=== PATIENT | female | born 1935 | race Caucasian/White ===

== ENCOUNTER → 2019-11-30 | Outpatient (CLI) | payer MEDICARE ==
[~2019-11-30] MED LIST: ATEN25TA PO; CALC1CAP7 PO; DILT360C26 PO; DULA1.5P INJ; INSU100I32 SQ; LEVO75TA5 PO; LOSA50TA14 PO; LOVA20TA2 PO; POTA20TA14 PO; RIVA20TA PO; TERA5CAP3 PO
== END | disposition home or self-care (01) ==
LOC: RAD 12:11
PROVIDERS: ATTEND Internal Medicine
DX: J43.2 Centrilobular emphysema (principal); J92.9 Pleural plaque without asbestos; J84.10 Pulmonary fibrosis, unspecified; R91.8 Other nonspecific abnormal finding of lung field; J98.4 Other disorders of lung; I25.10 Atherosclerotic heart disease of native coronary artery without angina pectoris; I77.810 Thoracic aortic ectasia; I70.0 Atherosclerosis of aorta; M85.88 Other specified disorders of bone density and structure, other site; R59.0 Localized enlarged lymph nodes
CPT/HCPCS: 71250

== ENCOUNTER 2019-12-03 09:44 | Day surgery (SDC) | payer MEDICARE ==
[2019-11-30 14:22] LABS: ALANINE AMINOTRANSFERASE 15 U/L (12-78); ALBUMIN 3.9 g/dL (3.4-5.0); ANION GAP 6 mmol/L (5-15); CALCIUM 9.5 mg/dL (8.5-10.1); CHLORIDE 106 mmol/L (98-107); CREATININE 0.95 mg/dL (0.55-1.02)
[2019-11-30 14:24] LABS: ALKALINE PHOSPHATASE 56 U/L (45-117); BILIRUBIN,TOTAL 0.7 mg/dL (0.2-1.0); TOTAL PROTEIN 7.2 g/dL (6.4-8.2)
[~2019-12-03] VITALS: Ht 161.3 cm; Wt 71.4 kg
[2019-12-03] MEDS ORDERED: PROPOFOL 10 MG/ML, 20ML ONE (10:16)
[2019-12-03] MEDS ORDERED: SUCCINYLCHOLINE 20 MG/ML, 10ML ONE (10:16)
[2019-12-03] MEDS ORDERED: NEOSTIGMINE 1 MG/ML, 10ML ONE (10:16)
[2019-12-03] MEDS ORDERED: ONDANSETRON 2MG/ML, 2ML ONE (10:16)
[2019-12-03] MEDS ORDERED: DEXAMETHASONE 4 MG/ML, 1ML ONE (10:16)
[2019-12-03] MEDS ORDERED: GLYCOPYRROLATE 0.2MG/1ML, 5ML ONE (10:16)
[2019-12-03] MEDS ORDERED: ROCURONIUM 10MG/ML,5ML ONE (10:16)
[2019-12-03] MEDS ORDERED: FENTANYL PF 100 MCG/2ML ONE (10:16)
[2019-12-03] MEDS ORDERED: CEFAZOLIN 1,000 MG ONE (10:16)
[2019-12-03] MEDS ORDERED: LACTATED RINGERS 1,000 ML IV SCH (10:19)
[2019-12-03 10:21] VITALS: BP 136/67
[2019-12-03] MEDS ORDERED: CHLORHEXIDINE 15 ML UDC MM ONE (10:30)
[2019-12-03] MEDS ORDERED: PROMETHAZINE 25 MG/ML, 1ML IVPush PRN (10:30)
[2019-12-03] MEDS ORDERED: FENTANYL PF 100 MCG/2ML IV PRN (10:30)
[2019-12-03] MEDS ORDERED: morphine SULFATE 10 MG/ML, 1ML IVPush PRN (10:30)
[2019-12-03] MEDS ORDERED: VASOPRESSIN 20 UNIT/ML, 1ML ONE (11:27)
[2019-12-03] MEDS ORDERED: LIDOCAINE-MPF 2% ,5ML ONE (11:27)
[2019-12-03] MEDS ORDERED: PHENYLEPHRINE 10 MG/ML ONE (11:27)
== END 2019-12-03 14:50 | disposition home or self-care (01) ==
LOC: OUT 09:44
PROVIDERS: ATTEND Internal Medicine
DX: R91.8 Other nonspecific abnormal finding of lung field (principal); C34.11 Malignant neoplasm of upper lobe, right bronchus or lung; Z20.828 Contact with and (suspected) exposure to other viral communicable diseases; C77.1 Secondary and unspecified malignant neoplasm of intrathoracic lymph nodes; I10 Essential (primary) hypertension; E11.9 Type 2 diabetes mellitus without complications; I48.20 Chronic atrial fibrillation, unspecified; J44.9 Chronic obstructive pulmonary disease, unspecified; E78.00 Pure hypercholesterolemia, unspecified; Z79.01 Long term (current) use of anticoagulants; Z79.4 Long term (current) use of insulin; Z79.890 Hormone replacement therapy; Z79.899 Other long term (current) drug therapy; Z85.3 Personal history of malignant neoplasm of breast; Z87.891 Personal history of nicotine dependence; Z90.49 Acquired absence of other specified parts of digestive tract; Z98.890 Other specified postprocedural states
CPT/HCPCS: 31628; 31653; 36415; 80053; 82962; 87635; 88172; 88173; 88177; 88305; 88341; 88342; 88360; 93005; J0330; J0690; J1100; J2370; J2405; J2704; J2710; J3010; J7120; 31629

== ENCOUNTER 2019-12-16 13:49 | Outpatient (CLI) | payer MEDICARE | END 2019-12-16 23:59 | disposition home or self-care (01) | LOC: RAD 13:49 | PROVIDERS: ATTEND Internal Medicine | DX: Z02.9 Encounter for administrative examinations, unspecified (principal) ==

== ENCOUNTER → 2019-12-17 | Outpatient (CLI) | payer MEDICARE ==
[~2019-12-17] MED LIST changes: +OMNIPAQUE 350 MG/ML, 75ML BOTTLE ONE
== END | disposition home or self-care (01) ==
LOC: RAD 13:35
PROVIDERS: ATTEND Internal Medicine
DX: C34.11 Malignant neoplasm of upper lobe, right bronchus or lung (principal); G31.9 Degenerative disease of nervous system, unspecified
CPT/HCPCS: 70460; Q9967